=== PATIENT | male | born 1950 | race Caucasian/White ===

== ENCOUNTER → 2017-03-17 | Outpatient (CLI) | payer OTHER ==
[~2017-03-17] MED LIST: FLOMAX0.4 MG PO; HYDROCODON-ACE1 EAC7 PO
--- NOTE | ~2017-03-17 | 2DMMODE ---
[facility] [address] [place] [address] 2 D/M-MODE ECHOCARDIOGRAM Name: COREEN GIRARD Room #: REG [facility]#: [id number] Admission: 03/17/17 Attend Phys: Ortega Newman Discharge: Date of : 54 Date of Service: 03/17/17 1603 Report #: [id number] THIS REPORT FOR: //name// APPROVED REPORT Study performed: 03/17/2017 15:15:12 EXAM: Comprehensive 2D, Doppler, and color-flow Echocardiogram Patient Location: Out-Patient Room #: Echo lab Other Information Study Quality: Good Indications Atrial Fibrillation 2D Dimensions RVDd: 40.42 mm LVEF(%): 59.81 (>50%) IVSd: 11.16 (7-11mm) LVOT Diam: 22.32 (18-24mm) LVDd: 48.97 mm PWd: 11.04 (7-11mm) Ascending Ao: 37.03 (22-36mm) LVDs: 33.35 (25-40mm) Aortic Root: 31.84 mm IVC: 24.00 mm Staples's LVEF: 59.81 % Volumes Left Atrial Volume (Systole) Single Plane 4CH: 85.11 mL Single Plane 2CH: 78.51 mL LA ESV Index: 45.00 mL/m2 Aortic Valve AoV Peak Tristan.: 1.48 m/s AO Peak Gr.: 8.76 mmHg LVOT Max P.34 mmHg LVOT Max V: 1.53 m/s SALINA Vmax: 4.04 cm2 Mitral Valve E/A Ratio: 1.4 MV Decel. Time: 234.08 ms MV E Max Tristan.: 0.68 m/s MV A Tristan.: 0.50 m/s MV PHT: 67.88 ms IVRT: 161.48 ms [facility] [place] [address] 2 D/M-MODE ECHOCARDIOGRAM Name: COREEN GIRARD Room #: [facility]#: [id number] Admission: 03/17/17 Attend Phys: Ortega Newman Discharge: Date of : 54 Date of Service: 03/17/17 1603 Report #: [id number] Pulmonary Valve PV Peak Tristan.: 1.02 m/s PV Peak Gr.: 4.20 mmHg Pulmonary Vein P Vein S: 0.45 m/s P Vein A: 0.22 m/s P Vein D: 0.37 m/s P Vein A Dur.: 124.6 msec P Vein S/D Ratio: 1.22 Tricuspid Valve TR Peak Tristan.: 2.15 m/s RAP Estimate: 10.00 mmHg TR Peak Gr.: 18.57 mmHg PA Pressure: 29.00 mmHg Left Ventricle The left ventricle is normal size. There is normal LV segmental wall motion. There is normal left ventricular wall thickness. The left ventricular systolic function is normal. The left ventricular ejection fraction is within the normal range. LVEF is 60-65%. The left ventricular diastolic function is normal. Right Ventricle The right ventricle is normal size. The right ventricular systolic function is normal. Moderator band is seen in the right ventricle. Atria Left atrium is dilated. Right atrium is dilated. Aortic Valve The aortic valve is normal in structure. No aortic regurgitation is present. There is no aortic valvular stenosis. Mitral Valve The mitral valve is normal in structure. Mild mitral regurgitation. No evidence of mitral valve stenosis. Tricuspid Valve The tricuspid valve is normal in structure. There is no tricuspid valve stenosis. There is mild tricuspid regurgitation. The right atrial pressure is estimated at 10 mmHg. There is no pulmonary hypertension. Pulmonic Valve The pulmonary valve is normal in structure. Trace pulmonic regurgitation. [facility] [address] [place] [address] 2 D/M-MODE ECHOCARDIOGRAM Name: COREEN GIRARD Room #: REG [facility]#: [id number] Admission: 03/17/17 Attend Phys: [facility] Discharge: Date of : 54 Date of Service: 03/17/17 1603 Report #: [id number] Great Vessels The aortic root is normal in size. IVC is dilated and collapses >50% with inspiration. Pericardium There is no pericardial effusion. <Conclusion> The left ventricle is normal size. LVEF is 60-65%. The right ventricle is normal size. Moderator band is seen in the right ventricle. Left atrium is dilated. Right atrium is dilated. The aortic valve is normal in structure. The mitral valve is normal in structure. Mild mitral regurgitation. The tricuspid valve is normal in structure. There is mild tricuspid regurgitation. The right atrial pressure is estimated at 10 mmHg. There is no pulmonary hypertension. The pulmonary valve is normal in structure. Trace pulmonic regurgitation. <ELECTRONICALLY SIGNED> By: Porter Wiseman MD 03/17/17 1603 1603 1603 Porter Wiseman MD /INF
== END ==
LOC: CV 13:48
DX: I48.91 Unspecified atrial fibrillation (principal)

== ENCOUNTER → 2017-05-07 | Outpatient (CLI) | payer OTHER ==
[~2017-05-07] VITALS: Ht 182.9 cm; Wt 83.9 kg
[~2017-05-07] MED LIST changes: +ASPIR 8181 MG PO; +CENTRUM SILVER1 EAC2 PO; +FISH OIL 1,001000 M2 PO; +FLECAINIDE ACET50 M1 PO; +GLUCOSAMINE HC500 MG PO; +PRADAXA150 MG PO; +ZETIA10 MG PO
--- NOTE | ~2017-05-07 | TEE ---
[facility] [place] [address] TRANSESOPHAGEAL ECHOCARDIOGRAM Name: COREEN GIRARD Room #: REG [facility]#: [id number] Admission: 05/07/17 Attend Phys: Alex Levine, Discharge: Date of : 54 Date of Service: 05/07/17 0927 Report #: [id number] THIS REPORT FOR: //name// APPROVED REPORT Study performed: 05/07/2017 07:57:53 EXAM: Comprehensive 2D, Doppler, and color-flow Echocardiogram Patient Location: Out-Patient Room #: 9 Status: routine Other Information Study Quality: Excellent Indications Atrial Fibrillation Echo Enhancing Agent Indication: Rule out Shunt Agent(s) / Amount(s) Used: Agitated Saline 7 cc Procedure After obtaining informed consent, patient underwent transesophageal echo in the [facility]. Type of Sedation : Conscious Sedation Sedation was administered by Addy Easton RN. Sedation start time: 08:08 Case end Time: 08:12 Sedation was achieved intravenously with: Versed (5 mg) Fentanyl (75 mcg) Transesophageal probe was inserted and advanced into esophagus without difficulty by Alex Levine MD. Echo enhancement indication: R/O Septal defect. Echo enhancement agent administered: Agitated Saline The PARUL was performed without complications. Throughout the procedure, the blood pressure, pulse oximetry, cardiac rhythm, and rate were monitored. The patient tolerated the procedure without adverse effects. Recovery from conscious sedation was uneventful and vital signs were stable. Left Ventricle The left ventricle is normal size. There is normal LV segmental wall motion. There is normal left ventricular wall thickness. The left [facility] [address] [place] [address] TRANSESOPHAGEAL ECHOCARDIOGRAM Name: COREEN GIRARD Room #: REG CL [facility]#: [id number] Admission: 05/07/17 Attend Phys: Alex Levine, Discharge: Date of : 54 Date of Service: 05/07/17 0927 Report #: [id number] ventricular systolic function is normal. The left ventricular ejection fraction is within the normal range. LVEF is 60-65%. Right Ventricle The right ventricle is normal size. The right ventricular systolic function is normal. Atria Left atrium is normal in size Small PFO is noted. Right atrium is normal in size Aortic Valve The aortic valve is normal in structure. No aortic regurgitation is present. There is no aortic valvular stenosis. Mitral Valve The mitral valve is normal in structure. Mild mitral regurgitation. No evidence of mitral valve stenosis. Tricuspid Valve The tricuspid valve is normal in structure. There is no tricuspid valve stenosis. Mild tricuspid regurgitation. Pulmonic Valve The pulmonary valve is normal in structure. There is no pulmonic valvular regurgitation. Great Vessels The aortic root is normal in size. Pericardium There is no pericardial effusion. <Conclusion> The left ventricular systolic function is normal. There is normal LV segmental wall motion. EF 65% No masses or clots in the left atrium or appendage Small PFO is noted with contrast bubble injection The aortic valve is normal in structure. No aortic regurgitation or stenosis The mitral valve is normal in structure. Mild mitral regurgitation. [facility] [address] [place] [address] TRANSESOPHAGEAL ECHOCARDIOGRAM Name: ERACOREEN A Room #: REG CL [facility]#: [id number] Admission: 05/07/17 Attend Phys: Alex Levine, Discharge: Date of : 54 Date of Service: 05/07/17926 Report #: [id number] Mild atherosclerosis in aorta. No aneurysm There is no pericardial effusion. <ELECTRONICALLY SIGNED> By: Alex Levine MD, [facility] 05/07/17926 6 6 Alex Levine MD, [facility] /INF
[2017-05-07 06:55] VITALS: BP 134/72
[2017-05-07 07:31] LABS: HEMATOCRIT 39.8 % (42.0-52.0); HEMOGLOBIN 13.6 gm/dL (14.0-18.0); MCH 31.3 pg (26.0-34.0); MCHC 34.2 g/dL (28.0-37.0); MCV 91.5 fL (80.0-100.0); RBC 4.35 mil/uL (4.50-6.00); RDW 14.2 % (10.5-14.5); WBC 6.1 thou/uL (4.0-11.0)
[2017-05-07 07:39] LABS: CALCIUM 8.8 mg/dL (8.5-10.1); CREATININE 0.9 mg/dL (0.7-1.3); POTASSIUM 4.5 mmol/L (3.5-5.1)
[2017-05-07 07:46] LABS: ALBUMIN 3.5 g/dL (3.4-5.0); TOTAL BILIRUBIN 0.5 mg/dL (<0.1-1.0); TOTAL PROTEIN 6.7 g/dL (6.4-8.2)
[2017-05-07 07:48] LABS: INR 1.2
[2017-05-07 07:57] LABS: APTT 42.9 Seconds (24.5-32.8)
== END | disposition home or self-care (01) ==
LOC: CATH 06:34
PROVIDERS: Internal Medicine
DX: I48.0 Paroxysmal atrial fibrillation (principal); I70.0 Atherosclerosis of aorta; I34.0 Nonrheumatic mitral (valve) insufficiency; I07.1 Rheumatic tricuspid insufficiency; E78.00 Pure hypercholesterolemia, unspecified; E78.5 Hyperlipidemia, unspecified; Z90.49 Acquired absence of other specified parts of digestive tract; Z87.891 Personal history of nicotine dependence; Z79.82 Long term (current) use of aspirin; Z98.890 Other specified postprocedural states

== ENCOUNTER → 2017-05-12 | Outpatient (CLI) | payer OTHER | LOC: CAT | DX: I48.91 Unspecified atrial fibrillation (principal); J98.11 Atelectasis ==

== ENCOUNTER 2017-05-20 06:42 | Observation (INO) | payer OTHER ==
[~2017-05-20] VITALS: Ht 182.9 cm; Wt 84.3 kg
--- NOTE | ~2017-05-20 | CATHLAB ---
[facility] [address] [facility] [address] [place] [address] INVASIVE PROCEDURE REPORT Name: ERACOREEN A Room #: 203-P [facility]#: [id number] Admission: 05/20/17 Attend Phys: Ortega Newman Discharge: 05/21/17 Date of : 54 Date of Service: 05/22/17 1056 Report #: [id number] THIS REPORT FOR: //name// APPROVED REPORT Patient Location: Room #: Stress Nurse: AFIB ABLATION and Aflutter ablation. PROCEDURES PERFORMED: AFIB ABLATION 3D MAPPING ABLATION OF A SECOND PATHWAY ARTERIAL LINE PLACEMENT History: The patient is a 66-year-old male with a history of recurrent atrial fibrillation and typical atrial flutter who is intolerant of antiarrhythmic drugs and has had clinical recurrence of arrhythmias. He's here for A. fib and atrial flutter ablation. Informed consent: The patient underwent informed consent. We discussed the details of the procedure including the need for transseptal access. We also discussed the risks of the procedure which include but are not limited to bleeding vascular damage cardiac perforation damage to the cherokee conduction system requiring pacemaker as well as stroke or GA. The patient understood these risks and is willing to proceed. Anesthesia: The patient underwent general anesthesia which was performed by the anesthesiology service. There were no anesthesia related complications. Procedure: Procedure: Patient was brought to the EP laboratory in a fasting nonsedated state and underwent general anesthesia performed by the anesthesiology service. Next I injected 10 mL of lidocaine to the right femoral groin region and obtained access to the right femoral vein 3 and placed sheaths using the modified [facility] [place] [address] INVASIVE PROCEDURE REPORT Name: COREEN GIRARD Room #: 203-P [facility]#: [id number] Admission: 05/20/17 Attend Phys: Ortega Newman Discharge: 05/21/17 Date of : 54 Date of Service: 05/22/17 1056 Report #: [id number] technique. I placed a 8 Spanish 9 Spanish and 7 Spanish locking sheath. Under fluoroscopy, I placed a Biosense Ge decapolar catheter into the coronary sinus and an Biosense Ge ICE catheter into the right atrium. I took detailed pictures of the left atrium left atrial appendage and pulmonary veins. Next the patient was systemically heparinized. Next, I exchanged the 8 Spanish short sheath for a SL 1 sheath and a Balis needle. A transseptal rupture was performed in the mid anterior aspect of the intra-atrial septum. The SL 1 sheath was then advanced over a wire into the left atrium. Next I exchanged the SL 1 sheath for the cryoablation sheath and then the Medtronic Artict Front Cryoablation Balloon was advanced to the left atrium. At baseline, the patient was in sinus rhythm with a sinus cycle length of 2060 ms SC interval 190 ms QS duration 80 ms QT interval 420 ms. I isolated the left inferior pulmonary vein and is isolated within 70 seconds of the first freeze. I initially thought that I was in the left superior pulmonary vein but this was infected left inferior pulmonary vein. Position of the left superior was somewhat challenging on intracardiac ultrasound. Next I turned my attention to the left superior pulmonary vein and this required 5 freezes in order for isolation to occur. There was evidence of entrance and exit block. While performing freezes in the right veins I performed phrenic nerve pacing from the decapolar catheter placed up at in the superior vena cava. The right superior pulmonary vein isolated after 3 freezes and there was evidence of dissociated potentials. The right inferior pulmonary vein required to freezes for isolation and there was evidence of isolation within 40 seconds of the second freeze which was performed for a total of 4 minutes during the second freeze. There was never any phrenic nerve compromise. Of note when we initially started ablating the patient was having frequent runs of atrial tachycardia with inverted P waves but after isolation of the pulmonary veins this was no longer evident. I could not induce this any further. He did though develop atrial fibrillation that required cardioversion and this allowed me to reinterrogate all the veins to ensure that they were isolated. I did perform an EP study post ablation and could not induce either an atrial tachycardia or atrial flutter therefore I decided to proceed with the atrial flutter ablation. Ablation of atrial flutter: After completion of the A. fib ablation on the left side, I pulled the catheters and sheaths to the right atrium. I exchanged my SLI sheath for a ramp sheath and I [facility] [address] [place] [address] INVASIVE PROCEDURE REPORT Name: COREEN GIRARD Room #: 203-P [facility] M.R.#: [id number] Admission: 05/20/17 Attend Phys: Ortega Newman Discharge: 05/21/17 Date of : 54 Date of Service: 05/22/17 1056 Report #: [id number] placed the Biosense Ge Smart touch ablation catheter into the right atrium. I also removed the ICE catheter after finding at there is no pericardial effusion and placed a halo catheter into the right atrium. An ablation lesion set was created at 6:00 along the caval tricuspid isthmus. A contiguous ablation line was performed. Relation was performed at 35-40 W along the isthmus. Post ablation there was evidence of bidirectional block based on pacing medial and lateral to the line. The trans-isthmus conduction time was 140 ms when pacing the coronary sinus and was 148 ms when pacing from Halo 1,2. During ablation along the isthmus there was some bursts of atrial tachycardia along this area. He did have a short run of what appeared to be an atypical flutter that terminated on its own. I tried to induce this flutter again and it remained noninducible. As such the procedure was concluded. Post ablation findings: Post ablation, the patient remind in sinus rhythm. The sinus cycle length was 950 ms SC interval 200 ms QRS duration 80 ms QT interval 450 ms. The patient received a 5 mg test dose of protamine followed by an additional 75 mg of protamine. Once the ACT was within acceptable range, catheters and sheaths were pulled and hemostasis was obtained. There are no complications or significant bleeding. The patient awoke neurologically and hemodynamically intact. Conclusion Conclusions: 1. Successful atrial fibrillation ablation isolation of the pulmonary veins. 2. Successful cavotricuspid isthmus dependent flutter ablation with evidence of bidirectional block. <ELECTRONICALLY SIGNED> By: Ortega Newman MD 05/22/17 1056 1056 1056 Ortega Newman MD /[facility]
[2017-05-20 07:20] VITALS: BP 112/69
[2017-05-20 07:50] LABS: ABSOLUTE NEUTROPHILS 4.7 thou/uL (1.4-8.2); EOSINOPHILS 2.6 % (0.0-3.0); HEMATOCRIT 40.3 % (42.0-52.0); HEMOGLOBIN 13.5 gm/dL (14.0-18.0); MCH 30.9 pg (26.0-34.0); MCHC 33.4 g/dL (28.0-37.0); MCV 92.5 fL (80.0-100.0); MONOCYTES 8.6 % (1.0-8.0); PLATELET COUNT 224 thou/uL (150-400); POLYS 65.8 % (36.0-66.0); RBC 4.36 mil/uL (4.50-6.00); RDW 14.1 % (10.5-14.5); WBC 7.2 thou/uL (4.0-11.0)
[2017-05-20 07:51] LABS: MANUAL DIFF NO
[2017-05-20 08:02] LABS: PROTIME 10.3 Seconds (9.3-11.4)
[2017-05-20 08:04] LABS: CALCIUM 8.7 mg/dL (8.5-10.1); CREATININE 0.9 mg/dL (0.7-1.3); POTASSIUM 4.4 mmol/L (3.5-5.1)
[2017-05-20 19:41] VITALS: BP 103/65
[2017-05-20 20:57] LABS: HEMATOCRIT 39.6 % (42.0-52.0); HEMOGLOBIN 13.2 gm/dL (14.0-18.0)
[2017-05-21 03:30] VITALS: BP 102/65
[2017-05-21 07:45] VITALS: BP 105/67
[2017-05-21 10:08] LABS: HEMATOCRIT 39.2 % (42.0-52.0); HEMOGLOBIN 12.9 gm/dL (14.0-18.0); MCH 30.6 pg (26.0-34.0); MCV 92.7 fL (80.0-100.0); PLATELET COUNT 210 thou/uL (150-400); RBC 4.23 mil/uL (4.50-6.00); RDW 14.1 % (10.5-14.5); WBC 13.9 thou/uL (4.0-11.0)
[2017-05-21 10:09] LABS: MANUAL DIFF YES
[2017-05-21 10:37] LABS: ABSOLUTE NEUTROPHILS 11.4 thou/uL (1.4-8.2); PLATELET ESTIMATE NORMAL; TOTAL CELL COUNT 100
[2017-05-21 11:20] VITALS: BP 107/64
[2017-05-21 15:09] VITALS: BP 107/64
[2017-05-21 16:22] VITALS: BP 107/64
== END 2017-05-21 15:39 | disposition home or self-care (01) ==
LOC: CATH → 2N 14:25 → CATH 05-22 06:34
PROVIDERS: Internal Medicine; Internal Medicine Cardiovascular Disease
DX: I48.0 Paroxysmal atrial fibrillation (principal); I48.92 Unspecified atrial flutter; I34.0 Nonrheumatic mitral (valve) insufficiency; R00.1 Bradycardia, unspecified; E78.5 Hyperlipidemia, unspecified; E78.00 Pure hypercholesterolemia, unspecified; F17.210 Nicotine dependence, cigarettes, uncomplicated; R06.09 Other forms of dyspnea; Z72.89 Other problems related to lifestyle
CPT/HCPCS: 62110; 70005

== ENCOUNTER → 2020-02-14 | Outpatient (CLI) | payer OTHER, MEDICARE | LOC: SJCVCIMAG 10:15 | DX: R94.31 Abnormal electrocardiogram [ECG] [EKG] (principal); I44.0 Atrioventricular block, first degree; I08.8 Other rheumatic multiple valve diseases; I48.0 Paroxysmal atrial fibrillation; I48.3 Typical atrial flutter; R00.1 Bradycardia, unspecified ==

== ENCOUNTER → 2020-08-21 | Outpatient (CLI) | payer OTHER, MEDICARE | LOC: SJCVC 10:30 | PROVIDERS: ATTEND Internal Medicine Cardiovascular Disease | DX: I44.0 Atrioventricular block, first degree (principal); R94.31 Abnormal electrocardiogram [ECG] [EKG]; I48.0 Paroxysmal atrial fibrillation; I48.3 Typical atrial flutter; I49.5 Sick sinus syndrome ==

== ENCOUNTER → 2021-02-19 | Outpatient (CLI) | payer OTHER, MEDICARE | LOC: SJCVC 11:06 | PROVIDERS: ATTEND Internal Medicine Cardiovascular Disease | DX: R94.31 Abnormal electrocardiogram [ECG] [EKG] (principal); I44.0 Atrioventricular block, first degree; R00.1 Bradycardia, unspecified; I48.91 Unspecified atrial fibrillation; I48.3 Typical atrial flutter; E78.00 Pure hypercholesterolemia, unspecified; E78.5 Hyperlipidemia, unspecified; I34.0 Nonrheumatic mitral (valve) insufficiency; F17.210 Nicotine dependence, cigarettes, uncomplicated; Z79.899 Other long term (current) drug therapy; Z72.89 Other problems related to lifestyle ==

== ENCOUNTER → 2021-02-27 | Outpatient (CLI) | payer OTHER | LOC: CAT 08:14 | PROVIDERS: ATTEND Internal Medicine Cardiovascular Disease | DX: Z13.6 Encounter for screening for cardiovascular disorders (principal); E78.00 Pure hypercholesterolemia, unspecified; I25.10 Atherosclerotic heart disease of native coronary artery without angina pectoris ==

== ENCOUNTER → 2021-08-20 | Outpatient (CLI) | payer OTHER, MEDICARE | LOC: SJCVC 09:40 | PROVIDERS: ATTEND Internal Medicine Cardiovascular Disease | DX: R94.31 Abnormal electrocardiogram [ECG] [EKG] (principal); R00.1 Bradycardia, unspecified; I44.0 Atrioventricular block, first degree; R93.1 Abnormal findings on diagnostic imaging of heart and coronary circulation; I48.91 Unspecified atrial fibrillation; I48.3 Typical atrial flutter; E78.00 Pure hypercholesterolemia, unspecified; R07.9 Chest pain, unspecified; E78.5 Hyperlipidemia, unspecified; F17.200 Nicotine dependence, unspecified, uncomplicated; Z79.899 Other long term (current) drug therapy; Z72.89 Other problems related to lifestyle ==

== ENCOUNTER → 2021-09-05 | Outpatient (CLI) | payer OTHER, MEDICARE | LOC: SJCVCIMAG 07:10 | PROVIDERS: ATTEND Internal Medicine Cardiovascular Disease | DX: I08.8 Other rheumatic multiple valve diseases (principal); E78.5 Hyperlipidemia, unspecified; I48.4 Atypical atrial flutter; R07.89 Other chest pain ==